=== PATIENT | male | born 1980 | race Two or more races ===

== ENCOUNTER 2025-09-21 08:10 | Emergency (ER) | payer SELFPAY ==
[~2025-09-21] VITALS: Ht 172.7 cm; Wt 100.0 kg
[2025-09-21 08:17] VITALS: O2SAT 99
[2025-09-21 08:52] LABS: BASOPHILS % 0.4 % (0.0-2.0); EOSINOPHILS % 0.8 % (0.0-5.0); HEMATOCRIT. 46.5 % (42.0-52.0); HEMOGLOBIN. 15.3 g/dL (14.0-18.0); LYMPHOCYTES % 50.7 % (20.0-50.0); MEAN PLATELET VOLUME 8.3 fl (7.4-10.4); MONOCYTES % 7.9 % (2.0-8.0); NEUTROPHILS % 40.2 % (40.0-76.0); PLATELET 166 x1000/uL (130-400); RED BLOOD CELL COUNT 4.91 mill/uL (4.7-6.1); RED CELL DISTRIBUTION WIDTH 13.8 % (11.6-14.6)
[2025-09-21 09:10] LABS: CREATININE 1.4 mg/dL (0.6-1.3); TROPONIN I HIGH SENSITIVITY < 4 ng/L (3.0-53)
[2025-09-21 09:11] LABS: UREA NITROGEN BLOOD 13 mg/dL (9-23)
[2025-09-21 09:12] LABS: ASPARTATE AMINOTRANSFERASE 60 IU/L (<34)
[2025-09-21 09:13] LABS: BILIRUBIN DIRECT < 0.1 mg/dL (<=3.0); BILIRUBIN TOTAL 0.4 mg/dL (0.1-1.0); PROTEIN TOTAL 7.3 g/dL (6.0-8.3)
[2025-09-21] MEDS ORDERED: NAPR-1495 MT (09:36)
[2025-09-21 09:59] VITALS: BP 131/73; PULSE 62; RESP 16; TEMP 36.7; O2SAT 99
== END 2025-09-21 10:01 | disposition home or self-care (01) ==
LOC: ER 08:10
DX: R07.89 Other chest pain (principal); Z79.1 Long term (current) use of non-steroidal anti-inflammatories (NSAID); Z79.899 Other long term (current) drug therapy
CPT/HCPCS: 36415; 71045; 80048; 80076; 83735; 83880; 84484; 85025; 93005; 99285